=== PATIENT | male | born 1975 | race Caucasian/White ===

== ENCOUNTER 2018-03-22 11:53 | Emergency (ER) | payer SELFPAY ==
[2018-03-22 12:48] LABS: Absolute Monocytes 0.4 K/uL (0.1-1.3); Absolute Neutrophil 5.2 K/uL (1.8-8.0); Basophils % 0.4 % (0-1.3); Eosinophils % 2.4 % (0-4.4); Hematocrit 46.2 % (39.6-49.0); Lymphocytes % 25.9 % (15.3-44.8); MCH 29.1 pg (27.0-35.0); MCV 84.3 fL (80-100); Monocytes % 4.6 % (3.3-12.3); RBC Red Blood Cell Count 5.48 M/uL (4.33-5.43)
[2018-03-22 12:50] LABS: Protime INR 1.03
[2018-03-22 13:09] LABS: ALT/SGPT 28 U/L (12-78); AST/SGOT 14 U/L (15-37); Albumin 4.5 g/dL (3.4-5.0); Alkaline Phosphatase 66 U/L (45-117); BUN Blood Urea Nitrogen 13 mg/dL (7-18); Bicarbonate 28 mmol/L (21-32); Bilirubin Total 0.4 mg/dL (0.2-1.0); Glucose Level 99 mg/dL (74-106); Magnesium 2.3 mg/dL (1.8-2.4); NT PRO-BNP 12 pg/mL (<125); Potassium 4.5 mmol/L (3.5-5.1); Protein, Total 7.7 g/dL (6.4-8.2); Sodium Level 140 mmol/L (136-145); Troponin (Emerg Dept Use Only) < 0.02 ng/mL (0.0-0.045)
--- NOTE | 2018-03-22 13:16 | RAD REPORT ---
EXAM DESCRIPTION: RAD - Chest Single View - 03/22/2018 1:09 pm CLINICAL HISTORY: PALPITATIONS Chest pain. COMPARISON: No comparisons FINDINGS: Portable technique limits examination quality. The lungs are grossly clear. The heart is normal in size. No displaced fractures. IMPRESSION: No acute intrathoracic process suspected.
--- NOTE | 2018-03-22 13:49 | EDPHYS ---
Physician Documentation [facility] Name: Richard Webb Age: 43 yrs Sex: Male : 1975 Arrival Date: 03/22/2018 Time: 11:56 Bed 14 Private MD: None, None ED Physician Salvador Vasquez HPI: 03/22 12:59 This 43 yrs old Male presents to ER via Ambulatory with complaints of Blood ps1 Pressure Problem. 12:59 patient has had intermittent palpitations over the last week associated with ps1 lightheadness and fatigue. NO known cardiac history. Additionally noticed that he has had increased BP readings. No history of hypertension. . Historical: - PMHx: 13:42 None; tw2 - PSHx: 13:42 None; tw2 - Immunization history:: Adult Immunizations. - Social history:: Smoking status: . - Ebola Screening: : Patient denies travel to an Ebola-affected area in the 21 days before illness onset. ROS: 17:07 Constitutional: Negative for fever, chills, and weight loss, Eyes: Negative for injury, ps1 pain, redness, and discharge, Respiratory: Negative for shortness of breath, cough, wheezing, and pleuritic chest pain, Abdomen/GI: Negative for abdominal pain, nausea, vomiting, diarrhea, and constipation, Back: Negative for injury and pain, MS/Extremity: Negative for injury and deformity, Skin: Negative for injury, rash, and discoloration, Neuro: Negative for headache, weakness, numbness, tingling, and seizure. 17:07 Cardiovascular: Positive for palpitations. Exam: 17:07 Constitutional: This is a well developed, well nourished patient who is awake, alert, ps1 and in no acute distress. Head/Face: Normocephalic, atraumatic. Eyes: Pupils equal round and reactive to light, extra-ocular motions intact. Lids and lashes normal. Conjunctiva and sclera are non-icteric and not injected. Chest/axilla: Normal chest wall appearance and motion. Nontender with no deformity. No lesions are appreciated. Cardiovascular: Regular rate and rhythm. No gallops, murmurs, or rubs. Normal PMI, no JVD. No pulse deficits. Respiratory: Lungs have equal breath sounds bilaterally, clear to auscultation and percussion. No rales, rhonchi or wheezes noted. No increased work of breathing, no retractions or nasal flaring. Abdomen/GI: Soft, non-tender, with normal bowel sounds. No distension or tympany. No guarding or rebound. No evidence of tenderness throughout. Skin: Warm, dry with normal turgor. Normal color with no rashes, no lesions, and no evidence of cellulitis. MS/ Extremity: Pulses equal, no cyanosis. Neurovascular intact. Full, normal range of motion. Neuro: Awake and alert, GCS 15, oriented to person, place, time, and situation. Cranial nerves II-XII grossly intact. Sensory grossly intact. Vital Signs: 12:19 BP 152 / 94; Pulse 81; Resp 18; Temp 98.1; Pulse Ox 97% on R/A; ph 12:22 Weight 86.18 kg (R); Height 5 ft. 8 in. (172.72 cm); Pain 1/10; tw2 13:20 BP 121 / 84; Pulse 70; Resp 16; Pulse Ox 95% on R/A; tw2 14:18 BP 129 / 83; Pulse 88; Resp 17; Pulse Ox 100% on R/A; tw2 12:22 Body Mass Index 28.89 (86.18 kg, 172.72 cm) tw2 MDM: 12:28 Patient medically screened. ps1 17:10 Data reviewed: vital signs, nurses notes, lab test result(s), EKG, radiologic studies, ps1 and as a result, I will discharge patient. Counseling: I had a detailed discussion with the patient and/or guardian regarding: the historical points, exam findings, and any diagnostic results supporting the discharge/admit diagnosis, lab results, radiology results, the need for outpatient follow up, a financial officer. 03/22 12:28 Order name: CBC with Diff; Complete Time: 12:51 ps1 03/22 12:28 Order name: Magnesium; Complete Time: 13:45 ps1 03/22 12:28 Order name: NT PRO-BNP; Complete Time: 13:45 ps1 03/22 12:28 Order name: PT-INR; Complete Time: 12:51 ps1 03/22 12:28 Order name: Troponin (emerg Dept Use Only); Complete Time: 13:45 ps1 03/22 12:28 Order name: CMP; Complete Time: 13:45 ps1 03/22 12:28 Order name: XRAY Chest (1 view); Complete Time: 13:45 ps1 03/22 12:28 Order name: EKG; Complete Time: 12:29 ps1 03/22 12:28 Order name: Cardiac monitoring; Complete Time: 12:43 ps1 03/22 12:28 Order name: EKG - Nurse/Tech; Complete Time: 12:43 ps1 03/22 12:28 Order name: IV Saline Lock; Complete Time: 12:43 ps1 03/22 12:28 Order name: Labs collected and sent; Complete Time: 12:43 ps1 03/22 12:28 Order name: O2 Per Protocol; Complete Time: 12:43 ps1 03/22 12:28 Order name: O2 Sat Monitoring; Complete Time: 12:43 ps1 EC:31 Rate is 73 beats/min. Rhythm is regular. QRS [place] is Normal. AL interval is normal. QRS ps1 interval is normal. QT interval is normal. No Q waves. T waves are Normal. No ST changes noted. Clinical impression: Normal ECG. Interpreted by me. Administered Medications: No medications were administered Disposition: 03/22/18 13:48 Discharged to Home. Impression: Palpitations. - Condition is Stable. - Discharge Instructions: Palpitations, [id number]. - Work release form, Medication Reconciliation Form, Thank You Letter, Antibiotic Education, Prescription Opioid Use form. - Follow up: Private Physician; When: 1 week; Reason: Further diagnostic work-up, Recheck today's complaints, Continuance of care, Re-evaluation by your physician. Follow up: Emergency Department; When: As needed; Reason: Worsening of condition. - Problem is new. - Symptoms are unchanged. Signatures: Dispatcher [employer] EDMegha Andino RN RN tw2 Salvador Vasquez MD MD ps1 Corrections: (The following items were deleted from the chart) 14:20 13:48 03/22/2018 13:48 Discharged to Home. Impression: Palpitations. Condition is tw2 Stable. Forms are Work release form, Medication Reconciliation Form, Thank You Letter, Antibiotic Education, Prescription Opioid Use. Follow up: Private Physician; When: 1 week; Reason: Further diagnostic work-up, Recheck today's complaints, Continuance of care, Re-evaluation by your physician. Follow up: Emergency Department; When: As needed; Reason: Worsening of condition. Problem is new. Symptoms are unchanged. ps1
--- NOTE | 2018-03-22 13:49 | ER ---
Nurse's Notes [facility] Name: Richard Webb Age: 43 yrs Sex: Male : 1975 Arrival Date: 03/22/2018 Time: 11:56 Bed 14 Private MD: None, None Diagnosis: Palpitations Presentation: 03/22 12:18 Presenting complaint: Patient states: Headache and dizziness x 2-3 days, states, "I've ph been told that I am borderline hypertensive so I was thinking it's my BP.". Transition of care: patient was not received from another setting of care. Onset of symptoms was March 22, 2018. Risk Assessment: Do you want to hurt yourself or someone else? Patient reports no desire to harm self or others. Initial Sepsis Screen: Does the patient meet any 2 criteria? No. Patient's initial sepsis screen is negative. Does the patient have a suspected source of infection? No. Patient's initial sepsis screen is negative. Care prior to arrival: None. 12:18 Method Of Arrival: Ambulatory ph 12:18 Acuity: SANTOS 3 ph Historical: - PMHx: 13:42 None; tw2 - PSHx: 13:42 None; tw2 - Immunization history:: Adult Immunizations. - Social history:: Smoking status: . - Ebola Screening: : Patient denies travel to an Ebola-affected area in the 21 days before illness onset. Screenin:14 Abuse screen: Denies threats or abuse. Nutritional screening: No deficits noted. tw2 Tuberculosis screening: No symptoms or risk factors identified. Fall Risk None identified. Assessment: 12:20 General: Appears in no apparent distress. well groomed, Behavior is calm, cooperative, tw2 appropriate for age. Pain: Denies pain. Neuro: Level of Consciousness is awake, alert, obeys commands, Oriented to person, place, time, situation. Neuro: Reports dizziness, headache since this morning. Cardiovascular: Heart tones S1 S2 Capillary refill < 3 seconds Patient's skin is warm and dry. Respiratory: Airway is patent Respiratory effort is even, unlabored, Respiratory pattern is regular, symmetrical, Breath sounds are clear bilaterally. GI: No signs and/or symptoms were reported involving the gastrointestinal system. Abdomen is flat, Bowel sounds present X 4 quads. : No signs and/or symptoms were reported regarding the genitourinary system. EENT: No signs and/or symptoms were reported regarding the EENT system. Derm: No signs and/or symptoms reported regarding the dermatologic system. Skin is intact, is healthy with good turgor, Skin is dry, Skin temperature is warm. Musculoskeletal: Range of motion: intact in all extremities. 13:42 Reassessment: Patient appears in no apparent distress at this time. No changes from tw2 previously documented assessment. Patient and/or family updated on plan of care and expected duration. Pain level reassessed. Patient is alert, oriented x 3, equal unlabored respirations, skin warm/dry/pink. 14:19 Reassessment: Patient appears in no apparent distress at this time. No changes from tw2 previously documented assessment. Patient and/or family updated on plan of care and expected duration. Pain level reassessed. Patient is alert, oriented x 3, equal unlabored respirations, skin warm/dry/pink. Vital Signs: 12:19 BP 152 / 94; Pulse 81; Resp 18; Temp 98.1; Pulse Ox 97% on R/A; ph 12:22 Weight 86.18 kg (R); Height 5 ft. 8 in. (172.72 cm); Pain 1/10; tw2 13:20 BP 121 / 84; Pulse 70; Resp 16; Pulse Ox 95% on R/A; tw2 14:18 BP 129 / 83; Pulse 88; Resp 17; Pulse Ox 100% on R/A; tw2 12:22 Body Mass Index 28.89 (86.18 kg, 172.72 cm) tw2 ED Course: 11:56 Patient arrived in ED. sb2 11:56 None, None is Private Physician. sb2 12:14 Megha Guzman, MILA is Primary Nurse. tw2 12:14 Bed in low position. Call light in reach. monitoring analyst on. Pulse ox on. NIBP on. tw2 12:15 Salvador Vasquez MD is Attending Physician. ps1 12:15 Arm band placed on. tw2 12:19 Triage completed. ph 12:43 Inserted saline lock: 22 gauge in right antecubital area, using aseptic technique. tw2 Blood collected. 13:09 X-ray completed. Portable x-ray completed in exam room. Patient tolerated procedure jb2 well. 13:10 XRAY Chest (1 view) In Process Unspecified. EDMS 14:19 No provider procedures requiring assistance completed. IV discontinued, intact, tw2 bleeding controlled, No redness/swelling at site. Pressure dressing applied. Administered Medications: No medications were administered Outcome: 13:48 Discharge ordered by . ps1 14:19 Discharged to home ambulatory. tw2 14:19 Condition: stable 14:19 Discharge instructions given to patient, Instructed on discharge instructions, follow up and referral plans. Demonstrated understanding of instructions, follow-up care. 14:20 Patient left the ED. tw2 Signatures: Dispatcher [employer] EDMS Tristan Oliva jb2 Tamiko Hess, RN RN Megha Guzman RN RN tw2 Salvador Vasquez MD MD ps1 Billeau, Sheri sb2
--- NOTE | 2018-03-22 15:01 | EKG ---
Test Date: 2018-03-22 Test Time: 12:31:30 Hourly Sign Language Interpreter: JESSICA MEASUREMENT RESULTS: Intervals: Rate: 73 CA: 142 QRSD: 78 QT: 374 QTc: 412 [place]que[place]: P: 56 CA: 142 QRS: 46 T: 32 INTERPRETIVE STATEMENTS: Normal sinus rhythm Normal ECG No previous ECG available for comparison Electronically Signed On 03-22-18 15:00:43 SOLID TIRE TUBER MACHINE OPERATOR by Caleb Dominguez
== END 2018-03-22 14:20 | disposition home or self-care (01) ==
LOC: ER 11:53
DX: R00.2 Palpitations (principal)
CPT/HCPCS: 36415; 71045; 80053; 83735; 83880; 84484; 85025; 85610; 93005; 99284